=== PATIENT | female | born 1930 | race Caucasian/White ===

== ENCOUNTER → 2017-06-23 | Outpatient (CLI) | payer MEDICARE ==
[2016-10-16 09:28] VITALS: BMI 23.3
[~2017-06-23] MED LIST: APIX5TAB PO; ASP81 PO; ASPI81TA86 PO; CALC-682 PO; CALC500T6 PO; CAR3.125 PO; CAR6.25 PO; CHOL10005 PO; CYAN100015 PO; DIVA250T81 PO; EST625 PO; FISH OIL1 CAP PO; FLU IM; FLU180SY9 IM; FLU45SYR17 IM; FLU45SYR25 IM ONLY; FURO-45 PO; FURO20TA19 PO; HCTZ25 PO; HYDR12.561 PO; HYDR15CR4 TP; IBUP-56 PO; IBUP400T13 PO; IRB150 PO; LEVO50TA80 PO; LEVO50TA86 PO; LIDO10VI16 INTRA-ART; LIDO20SO21 MM; LISI-347 PO; LISI20TA29 PO; LISI5TAB25 PO; Lisinopril PO; MAGN400T36 PO; MVI; OMEG-11 PO; ONDA-2 PO; ONDA4TAB97 PO; OXYC-865 PO; OXYGENHOME INH; PNEU0.5D3 IM; POTA20TA10 PO; POTA25TA6 PO; PSYL660P5 PO; SPIR25TA78 PO; SULF-198 PO; TRI40I IART; VAL250 PO; WARF1TAB15 PO
[2017-06-23 10:31] LABS: PLATELET COUNT, AUTOMATED 111 K/uL (150-450)
[2017-06-23 10:37] LABS: INR 2.28
== END ==
LOC: LAB 08:59
PROVIDERS: ATTEND Family Medicine
DX: I48.2 Chronic atrial fibrillation (principal); E55.9 Vitamin D deficiency, unspecified; I50.22 Chronic systolic (congestive) heart failure; E53.8 Deficiency of other specified B group vitamins; E03.9 Hypothyroidism, unspecified; I10 Essential (primary) hypertension
CPT/HCPCS: 36415; 82040; 82247; 82306; 82310; 82374; 82435; 82565; 82607; 82947; 83880; 84075; 84132; 84155; 84295; 84443; 84450; 84460; 84520; 85025; 85610

== ENCOUNTER 2017-08-02 11:14 | Inpatient (IN) | payer MEDICARE ==
[~2017-08-02] VITALS: Ht 162.6 cm; Wt 85.0 kg
[2017-08-02] VITALS (7 sets, daily range): BP systolic 81–109; BP diastolic 48–83
[~2017-08-02 11:14] MED LIST changes: -WARF1TAB56 PO
--- NOTE | 2017-08-02 11:21 | ER Report ---
History and Physical Time Seen By MD: 11:21 HPI/ROS CHIEF COMPLAINT: Dizziness HISTORY OF PRESENT ILLNESS: 87-year-old female patient presents to emergency room with complaint of dizziness. Patient states that this started last night. She states that she's not had any shortness of breath, nausea, vomiting or diarrhea. Patient states she is not taking any medication for this. Patient states she does stay at home as she is unable to leave the house on her own. Patient does have significant swelling, she states she is no longer taking her Lasix. She states she's been switched to Bumex. Her last BMP was greater than 1000. Patient denies having any fevers, chills. Patient states she got up from her recliner, was going to put some the way. When she did that she became incredibly dizzy. She is sitting down in a folding chair, where she stayed all night until this morning when her son found her. He was contacted and she is brought into the emergency room via EMS. REVIEW OF SYSTEMS: Respiratory: No cough, no dyspnea. Cardiovascular: No chest pain, no palpitations. Gastrointestinal: No vomiting, no abdominal pain. Musculoskeletal: No back pain. Allergies: Coded Allergies: Penicillins (Verified Allergy, Mild, 08/02/17) Tetanus Vaccines and Toxoid (Verified Allergy, Mild, 08/02/17) codeine (Verified Allergy, Mild, 08/02/17) erythromycin base (Verified Allergy, Mild, 08/02/17) minocycline (Verified Allergy, Mild, 08/02/17) oxymorphone (Verified Allergy, Mild, 08/02/17) propoxyphene (Verified Allergy, Mild, 08/02/17) Home Meds Active Scripts Warfarin Sodium (WARFARIN SODIUM) 1 Mg Tablet, 3 TAB PO Garcia, Mo, , We, #270 TAB 0 Refills Take as directed Prov:KIERSTEN THOMAS MD 08/02/17 Torsemide (TORSEMIDE) 20 Mg Tablet, 20 MG PO QAM for 30 Days, #30 TAB 3 Refills Prov:RACHAEL YEE MD 07/28/17 Spironolactone (ALDACTONE) 25 Mg Tablet, 0.5 TAB PO QDAY for 90 Days, #45 TAB Prov:RACHAEL YEE MD 07/07/17 Potassium Chloride (Potassium Chloride) 20 Meq Tablet.er, 1 TAB PO DAILY for 90 Days, #90 TAB Prov:RACHAEL YEE MD 06/15/17 Divalproex Sodium (DEPAKOTE ER) 250 Mg Tab.er.24h, 2 TAB PO HS for 90 Days, # 180 TAB 0 Refills Prov:RACHAEL YEE MD 06/05/17 Carvedilol (CARVEDILOL) 6.25 Mg Tab, 1 TAB PO BID, #180 TAB 4 Refills Prov:RACHAEL YEE MD 04/16/17 Levothyroxine Sodium (LEVOTHYROXINE SODIUM) 50 Mcg Tablet, 1 TAB PO QDAY, #90 TAB 4 Refills Prov:RUSS ESCALERA MD 12/03/16 Reported Medications Warfarin Sodium (COUMADIN) 1 Mg Tablet, 4.5 MG PO Th, Fr, Sa 08/02/17 Psyllium Husk (Metamucil) 3.4 Gram/5.4 Gram Powder, 1 DOSE-PACK PO DAILY Y for CONSTIPATION 06/15/17 Oxygen (OXYGEN) Inha, 2 L INH HS, L 10/16/16 Cholecalciferol (Vitamin D3) (VITAMIN D3) 1,000 Unit Tablet, 2 TAB PO QDAY, TAB 06/25/15 Discontinued Scripts Furosemide (LASIX) 20 Mg Tablet, 2 TAB PO DAILY, #90 TAB Prov:RACHAEL YEE MD 07/21/17 Past Medical/Surgical History Patient has a past medical history of dementia, NE, A. fib, hypertension, arthritis, skin cancer. Patient has surgical history of cardiac surgery, abdominal surgery, appendectomy , hysterectomy, back surgery, tonsillectomy, skin cancer removal. Reviewed Nurses Notes: Yes Hx Smoking: No Smoking Status: Never Smoker Hx Substance Use Disorder: No Hx Alcohol Use: No Constitutional Vital Sign - Last 24 Hours 08/02/17 08/02/17 08/02/17 08/02/17 11:16 11:19 11:20 11:20 Temp 97.5 Pulse 99 Resp 20 B/P (MAP) 90/72 (78) 122/72 (89) 90/72 O2 Delivery Non-Rebreather O2 Flow Rate 10.0 08/02/17 08/02/17 08/02/17 08/02/17 11:30 11:44 11:45 12:00 Pulse 105 Resp 18 B/P (MAP) 111/79 (90) 101/74 (83) 104/62 (76) 08/02/17 08/02/17 08/02/17 08/02/17 12:14 12:15 12:20 12:30 Pulse 57 Resp 15 10 B/P (MAP) 93/55 (68) 95/61 (72) Pulse Ox 94 08/02/17 13:00 B/P (MAP) 109/77 (88) Intake and Output 08/02/17 08/02/17 08/03/17 14:59 22:59 06:59 Output Total 400 ml Balance -400 ml Physical Exam General Appearance: The patient is alert, has no immediate need for airway protection and no current signs of toxicity. Respiratory: Chest is non tender, lungs are clear to auscultation. Cardiac: regular rate and rhythm Gastrointestinal: Abdomen is soft and non tender, no masses, bowel sounds normal. Musculoskeletal: Neck: Neck is supple and non tender. Extremities have full range of motion and are non tender. Skin: No rashes or lesions. DIFFERENTIAL DIAGNOSIS: After history and physical exam differential diagnosis was considered for dizziness including but not limited to peripheral and central causes of vertigo, orthostatic causes including dehydration, and blood loss. Included in the differential is NE, stroke, intracranial hemorrhage. Medical Decision Making Data Points Result Diagram: 08/02/17 1122 08/02/17 1122 Laboratory Hematology Test 08/02/17 11:22 08/02/17 11:38 Red Blood Count 4.30 M/uL (4.17-5.56) Mean Corpuscular Volume 105.3 fL (80.0-96.0) Mean Corpuscular Hemoglobin 37.1 pg (26.0-33.0) Mean Corpuscular Hemoglobin Concent 35.2 g/dL (32.0-36.0) Red Cell Distribution Width 17.1 % (11.5-14.5) Mean Platelet Volume 8.9 fL (7.2-11.1) Neutrophils (%) (Auto) 79.4 % (39.4-72.5) Lymphocytes (%) (Auto) 9.8 % (17.6-49.6) Monocytes (%) (Auto) 9.8 % (4.1-12.4) Eosinophils (%) (Auto) 0.2 % (0.4-6.7) Basophils (%) (Auto) 0.8 % (0.3-1.4) Nucleated RBC Relative Count (auto) 0.0 /100WBC Neutrophils # (Auto) 4.5 K/uL (2.0-7.4) Lymphocytes # (Auto) 0.5 K/uL (1.3-3.6) Monocytes # (Auto) 0.5 K/uL (0.3-1.0) Eosinophils # (Auto) 0.0 K/uL (0.0-0.5) Basophils # (Auto) 0.0 K/uL (0.0-0.1) Nucleated RBC Absolute Count (auto) 0.00 K/uL Prothrombin Time 28.4 seconds (12.0-14.4) Prothromb Time International Ratio 2.56 Sodium Level 132 mmol/L (137-145) Potassium Level 3.3 mmol/L (3.5-5.0) Chloride Level 96 mmol/L (98-107) Carbon Dioxide Level 24 mmol/L (22-31) Blood Urea Nitrogen 22 mg/dl (7-18) Creatinine 0.90 mg/dl (0.52-1.04) Glomerular Filtration Rate Calc 59.0 Random Glucose 103 mg/dl (75-110) Calcium Level 9.1 mg/dl (8.4-10.2) Total Bilirubin 1.6 mg/dl (0.2-1.3) Aspartate Amino Transf (AST/SGOT) 31 U/L (0-35) Alanine Aminotransferase (ALT/SGPT) 14 U/L (0-56) Alkaline Phosphatase 70 U/L (0-126) Troponin I 0.402 ng/ml B-Type Natriuretic Peptide 1730 pg/ml (0-100) Total Protein 6.2 gm/dl (6.3-8.2) Albumin 3.2 g/dl (3.5-5.0) Urine Color Yellow Urine Clarity Clear Urine pH 6.0 pH (4.8-9.5) Urine Specific [place] 1.010 Urine Protein Negative mg/dL (NEGATIVE) Urine Glucose (UA) Negative mg/dL (NEGATIVE) Urine Ketones Trace mg/dL (NEGATIVE) Urine Blood Negative (NEGATIVE) Urine Nitrite Negative (NEGATIVE) Urine Bilirubin Negative (NEGATIVE) Urine Urobilinogen 2.0 mg/dL (0.2-1.9) Urine Leukocyte Esterase Negative (NEGATIVE) Urine RBC 1 /HPF (0-2/HPF) Urine WBC 2 /HPF (0-5/HPF) Urine Squamous Epithelial Cells None /LPF (NONE-FEW) Urine Bacteria Negative /HPF (NONE-FEW) Urine Mucus None /HPF (NONE-FEW) Chemistry Test 08/02/17 11:22 08/02/17 11:38 White Blood Count 5.6 k/uL (4.5-11.0) Red Blood Count 4.30 M/uL (4.17-5.56) Hemoglobin 15.9 g/dL (12.0-16.0) Hematocrit 45.3 % (34.0-47.0) Mean Corpuscular Volume 105.3 fL (80.0-96.0) Mean Corpuscular Hemoglobin 37.1 pg (26.0-33.0) Mean Corpuscular Hemoglobin Concent 35.2 g/dL (32.0-36.0) Red Cell Distribution Width 17.1 % (11.5-14.5) Platelet Count 119 K/uL (150-450) Mean Platelet Volume 8.9 fL (7.2-11.1) Neutrophils (%) (Auto) 79.4 % (39.4-72.5) Lymphocytes (%) (Auto) 9.8 % (17.6-49.6) Monocytes (%) (Auto) 9.8 % (4.1-12.4) Eosinophils (%) (Auto) 0.2 % (0.4-6.7) Basophils (%) (Auto) 0.8 % (0.3-1.4) Nucleated RBC Relative Count (auto) 0.0 /100WBC Neutrophils # (Auto) 4.5 K/uL (2.0-7.4) Lymphocytes # (Auto) 0.5 K/uL (1.3-3.6) Monocytes # (Auto) 0.5 K/uL (0.3-1.0) Eosinophils # (Auto) 0.0 K/uL (0.0-0.5) Basophils # (Auto) 0.0 K/uL (0.0-0.1) Nucleated RBC Absolute Count (auto) 0.00 K/uL Prothrombin Time 28.4 seconds (12.0-14.4) Prothromb Time International Ratio 2.56 Glomerular Filtration Rate Calc 59.0 Calcium Level 9.1 mg/dl (8.4-10.2) Total Bilirubin 1.6 mg/dl (0.2-1.3) Aspartate Amino Transf (AST/SGOT) 31 U/L (0-35) Alanine Aminotransferase (ALT/SGPT) 14 U/L (0-56) Alkaline Phosphatase 70 U/L (0-126) Troponin I 0.402 ng/ml B-Type Natriuretic Peptide 1730 pg/ml (0-100) Total Protein 6.2 gm/dl (6.3-8.2) Albumin 3.2 g/dl (3.5-5.0) Urine Color Yellow Urine Clarity Clear Urine pH 6.0 pH (4.8-9.5) Urine Specific [place] 1.010 Urine Protein Negative mg/dL (NEGATIVE) Urine Glucose (UA) Negative mg/dL (NEGATIVE) Urine Ketones Trace mg/dL (NEGATIVE) Urine Blood Negative (NEGATIVE) Urine Nitrite Negative (NEGATIVE) Urine Bilirubin Negative (NEGATIVE) Urine Urobilinogen 2.0 mg/dL (0.2-1.9) Urine Leukocyte Esterase Negative (NEGATIVE) Urine RBC 1 /HPF (0-2/HPF) Urine WBC 2 /HPF (0-5/HPF) Urine Squamous Epithelial Cells None /LPF (NONE-FEW) Urine Bacteria Negative /HPF (NONE-FEW) Urine Mucus None /HPF (NONE-FEW) Coagulation Test 08/02/17 11:22 Prothrombin Time 28.4 seconds Prothromb Time International Ratio 2.56 Urinalysis Test 08/02/17 11:38 Urine Color Yellow Urine Clarity Clear Urine pH 6.0 pH (4.8-9.5) Urine Specific [place] 1.010 Urine Protein Negative mg/dL (NEGATIVE) Urine Glucose (UA) Negative mg/dL (NEGATIVE) Urine Ketones Trace mg/dL (NEGATIVE) Urine Blood Negative (NEGATIVE) Urine Nitrite Negative (NEGATIVE) Urine Bilirubin Negative (NEGATIVE) Urine Urobilinogen 2.0 mg/dL (0.2-1.9) Urine Leukocyte Esterase Negative (NEGATIVE) Urine RBC 1 /HPF (0-2/HPF) Urine WBC 2 /HPF (0-5/HPF) Urine Squamous Epithelial Cells None /LPF (NONE-FEW) Urine Bacteria Negative /HPF (NONE-FEW) Urine Mucus None /HPF (NONE-FEW) EKG/Imaging EKG Interpretation 12 lead EKG: Rhythm: A. fib with rapid ventricular response, PVCs [place]: normal QRS: normal ST segments: Nonspecific ST abnormality Imaging Examination: CHEST SINGLE AP Comparison: 02/07/2017 and earlier. History: Dizziness. Chest pain. Findings: Moderately enlarged cardiac silhouette as before. Sternotomy wires are midline and intact. Aortic valve replacement. Small bilateral chronic pleural effusions. Chronic interstitial thickening. No pneumothorax or definite evidence of acute pulmonary edema. No consolidation. No acute osseous normality. IMPRESSION: 1. Unchanged moderate cardiac silhouette enlargement. 2. Unchanged small bilateral pleural effusions. 3. Overall, the chest is minimally changed since 02/07/2017. Report Dictated By: Cihvo Weeks MD at 08/02/2017 1:00 PM Report E-Signed By: Chivo Weeks MD at 08/02/2017 1:03 PM EXAMINATION: CT HEAD WITHOUT CONTRAST COMPARISON: 02/07/2017 HISTORY: dizziness PROCEDURE: Noncontrast CT from the vertex through the skull base. One of the following dose optimization techniques was utilized in the performance of this exam: Automated exposure control; adjustment of the mA and/or kV according to the patient's size; or use of an iterative reconstruction technique. Specific details can be referenced in the facility's radiology CT exam operational policy. FINDINGS: Brain volume: Mild global volume loss. Hemorrhage/extra-axial fluid: None. Mass effect/midline shift/edema: None. Ischemia: Moderately advanced chronic white matter disease as before. No acute torres-white differentiation loss. Ventricles and basal cisterns: Within normal limits. Posterior fossa: Negative. Vessels: Carotid atherosclerosis. Calvarium, skull base, and scalp: Negative. Visualized sinuses and orbits: Within normal limits. IMPRESSION: 1. No intracranial hemorrhage or mass effect. 2. Atrophy and chronic white matter disease. No CT findings of acute ischemia. Report Dictated By: Chivo Weeks MD at 08/02/2017 1:03 PM Report E-Signed By: Chivo Weeks MD at 08/02/2017 1:06 PM ED Course/Re-evaluation ED Course Patient was admitted to exam room, history and physical were obtained. Differential diagnoses were considered. On examination patient had lungs are clear, heart was irregular and tachycardic with ventricular rate between 1:15 and 145. A CBC, CMP, EKG, troponin, CT scan of the head, chest x-ray, urinalysis were obtained. The CBC was unremarkable, CMP also unremarkable, EKG showed atrial fibrillation with rapid ventricular response. Patient had a 10 mg dose of diltiazem. That took her heart rate down into the 70s and 80s. Chest x- ray showed no acute findings, troponin was positive at 0.402. I did review previous records, her troponin had never been that high. I discussed the findings with the patient's son as well as the patient. I asked them if they would like to be admitted here for treatment of symptoms and medical management. If they want something more invasive would have to transfer her to [place]. The patient and son both verbalized that they would prefer that she stay here or seek treatment here in [place]. I discussed the case with Dr. Kiersten Thomas, hospitalist who agreed to accept the patient for admission with diagnosis of NSTEMI. Dr. Thomas did request to get an INR done prior to admission. That was done and she had an INR of 2.56. Decision to Disposition Date: August 02, 2017 Decision to Disposition Time: 13:01 Depart Departure Latest Vital Signs Vital Signs Date Time Temp Pulse Resp B/P (MAP) Pulse Ox O2 Delivery O2 Flow Rate FiO2 08/02/17 13:00 109/77 (88) 08/02/17 12:20 10 08/02/17 12:14 57 94 08/02/17 11:20 97.5 Non-Rebreather 08/02/17 11:20 10.0 Impression: Primary Impression: NSTEMI (non-ST elevated myocardial infarction) Condition: Condition Unchanged Disposition: Admitted from ER Referrals: RACHAEL YEE MD (PCP) New Scripts Warfarin Sodium (WARFARIN SODIUM) 1 Mg Tablet 3 TAB PO Garcia, Mo, Tu, We, #270 TAB 0 Refills Take as directed Prov: KIERSTEN THOMAS MD 08/02/17 NAN SUNG August 02, 2017 11:21
[2017-08-02] MEDS ORDERED: ASPIRIN 81 MG CHEW PO ONE (11:35)
[2017-08-02] MEDS ORDERED: DILTIAZEM 5 MG/ML 5ML IVPUSH IVP ONE (11:40)
[2017-08-02 12:06] LABS: PLATELET COUNT, AUTOMATED 119 K/uL (150-450)
--- NOTE | 2017-08-02 13:07 | RADIOLOGY IMAGING REPORT ---
FACILITY: [facility] PATIENT NAME: Haydee Warner : 1930 MR: [id number] V: [id number] EXAM DATE: ORDERING PHYSICIAN: NAN SUNG TECHNOLOGIST: Location: [facility] - [place] Patient: Haydee Warner : 1930 Visit/Account:[id number] Date of Sevice: 08/02/2017 Examination: CHEST SINGLE AP Comparison: 02/07/2017 and earlier. History: Dizziness. Chest pain. Findings: Moderately enlarged cardiac silhouette as before. Sternotomy wires are midline and intact. Aortic valve replacement. Small bilateral chronic pleural effusions. Chronic interstitial thickening. No pneumothorax or defini te evidence of acute pulmonary edema. No consolidation. No acute osseous normality. IMPRESSION: 1. Unchanged moderate cardiac silhouette enlargement. 2. Unchanged small bilateral pleural effusions. 3. Overall, the chest is minimally changed since 02/07/2017. Report Dictated By: Chivo Weeks MD at 08/02/2017 1:00 PM Report E-Signed By: Chivo Weeks MD at 08/02/2017 1:03 PM WSN:[id number]
--- NOTE | 2017-08-02 13:09 | RADIOLOGY IMAGING REPORT ---
FACILITY: [facility] - [place] PATIENT NAME: Haydee Warner : 1930 MR: [id number] V: [id number] EXAM DATE: ORDERING PHYSICIAN: NAN SUNG TECHNOLOGIST: Location: [facility] Patient: Haydee Warner : 1930 Visit/Account:[id number] Date of Sevice: 08/02/2017 EXAMINATION: CT HEAD WITHOUT CONTRAST COMPARISON: 02/07/2017 HISTORY: dizziness PROCEDURE: Noncontrast CT from the vertex through the skull base. One of the following dose optimizat ion techniques was utilized in the performance of this exam: Automated exposure control; adjustment o f the mA and/or kV according to the patient's size; or use of an iterative reconstruction technique. Specific details can be referenced in the facility's radiology CT exam operational policy. FINDINGS: Brain volume: Mild global volume loss. Hemorrhage/extra-axial fluid: None. Mass effect/midline shift/edema: None. Ischemia: Moderately advanced chronic white matter disease as before. No acute torres-white differentia tion loss. Ventricles and basal cisterns: Within normal limits. Posterior fossa: Negative. Vessels: Carotid atherosclerosis. Calvarium, skull base, and scalp: Negative. Visualized sinuses and orbits: Within normal limits. IMPRESSION: 1. No intracranial hemorrhage or mass effect. 2. Atrophy and chronic white matter disease. No CT findings of acute ischemia. Report Dictated By: Chivo Weeks MD at 08/02/2017 1:03 PM Report E-Signed By: Chivo Weeks MD at 08/02/2017 1:06 PM WSN:[id number]
[2017-08-02 13:26] LABS: INR 2.56
--- NOTE | 2017-08-02 13:36 | EKG ---
[place] [facility] [place] NAME: LEX KWAN : [id number] MR: [id number] V: [id number] EXAM DATE: ORDERING PHYSICIAN: NAN SUNG TECHNOLOGIST: SHANEL Test Reason : SYNCOPE Blood Pressure : / mmHG Vent. Rate : 116 BPM Atrial Rate : 150 BPM P-R Int : 000 ms QRS Dur : 094 ms QT Int : 340 ms P-R-T Axes : 000 008 170 degrees QTc Int : 472 ms Atrial fibrillation with rapid ventricular response with premature ventricular or aberrantly conducte d complexes ST and T wave abnormality, consider lateral ischemia Abnormal ECG No previous ECGs available Confirmed by KIERSTEN EDWARDS ([id number]) on 08/02/2017 4:15:31 PM Referred By: MESFIN Confirmed By:KIERSTEN EDWARDS
[2017-08-02] MEDS ORDERED: FLUSH 10 ML SYR IVP PRN (14:15)
[2017-08-02] MEDS ORDERED: ACETAMINOPHEN 325 MG TAB PO PRN (14:15)
[2017-08-02] MEDS ORDERED: WARF1TAB56 PO (14:53)
[2017-08-02] MEDS ORDERED: WARF1TAB15 PO (14:53)
--- NOTE | 2017-08-02 15:49 | History & Physical ---
History of Present Illness Chief Complaint Generalized weakness History of Present Illness The patient is an 87 year old female who lives alone with PMH significant for CAD, chronic atrial fibrillation, CHF, AVR with porcine valve and mitral regurgitation who presents with generalized weakness. History is obtained from the patient and her son. The patient apparently walked to a room in the back of her home to get new magazines for her coffee table. When she got to the back of her house, she was weak and sat down in a folding chair. Per her son, the patient has become progressively weaker every day over the past month. She often has to sit down to rest. However, the patient could not get up from the chair. She says her legs were weaker than usual. This occurred at about 3pm. She could not get up and sat in the chair overnight until her son found her this morning. He tried to get her up with her walker to help her to the restroom , but her legs gave out. He helped her to the floor and called EMS. She wears a Lifeline device but forgot that she had it so did not call for help. The patient denies chest pain, shortness of breath, palpitations, racing heart, nausea, vomiting or abdominal discomfort. She has not had fever or chills. She has not had dysuria. Per her son, she has a lift chair and sits in it 90% of the time. She sleeps most of this time. The patient has had significant edema and has been working with Dr. Yee who does home visits. On her last visit to Dr. Yee's office, the patient's weight had increased 10-15 pounds and she weighed 173. Apparently she does best at a weight of approximately 145 pounds. She was recently switched from Lasix to torsemide. She had been on a low sodium diet, but her sodium level became too low so she is now on diet as tolerated. She states she likes to eat [employer] biscuits for her meals because they are easy to prepare. Per the patient's son, the patient had a 3 vessel CABG and aortic bovine valve placed in 2000 in [place]. She has significant mitral regurgitation (moderate to severe) per Dr. Yee's notes. The last echo performed at [facility] was done in May 2015. At that time EF was under 50% with no wall motion abnormalities. There was generalized hypokinesis. She had LAE, LVH, moderate and AI, moderate TI, mild pulmonary HTN and grade 3/4 diastolic dysfunction. The patient has a biologist in [place] that she has seen in the past. She has also seen the [employer] [facility] but her son states "they didn't do much for her ", so she stopped seeing them. The patient currently has a private BOOKING SUPERVISOR once weekly to help with bathing. 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 Status: Chronic (3) Nocturnal hypoxia Status: Chronic (4) Vitamin D deficiency Status: Chronic (5) Diastolic dysfunction Status: Chronic (6) Osteopenia Status: Chronic (7) Vitamin B12 deficiency (non anemic) Status: Chronic (8) Chronic systolic CHF (congestive heart failure) Status: Chronic (9) Thrombocytopenia Status: Chronic (10) Macrocytosis without anemia Status: Chronic (11) Hypothyroidism Onset Date: 12/21/2013 Status: Chronic (12) Hypertension, benign Onset Date: 12/21/2013 Status: Chronic (13) CAD (coronary artery disease) Status: Chronic (14) Hyperlipidemia Status: Chronic (15) Sensorineural hearing loss Status: Chronic (16) History of coronary artery bypass graft Status: Resolved (17) History of aortic valve replacement with bioprosthetic valve Status: Resolved (18) History of cholecystectomy Status: Resolved (19) History of appendectomy Status: Resolved (20) History of hysterectomy Status: Resolved (21) S/P knee replacement Status: Resolved (22) History of back surgery Status: Resolved Home Meds Active Scripts Warfarin Sodium (WARFARIN SODIUM) 1 Mg Tablet, 3 TAB PO Garcia, Mo, Tu, We, #270 TAB 0 Refills Take as directed Prov:KIERSTEN BLUE MD 08/02/17 Torsemide (TORSEMIDE) 20 Mg Tablet, 20 MG PO QAM for 30 Days, #30 TAB 3 Refills Prov:RACHAEL YEE MD 07/28/17 Spironolactone (ALDACTONE) 25 Mg Tablet, 0.5 TAB PO QDAY for 90 Days, #45 TAB Prov:RACHAEL YEE MD 07/07/17 Potassium Chloride (Potassium Chloride) 20 Meq Tablet.er, 1 TAB PO DAILY for 90 Days, #90 TAB Prov:RACHAEL YEE MD 06/15/17 Divalproex Sodium (DEPAKOTE ER) 250 Mg Tab.er.24h, 2 TAB PO HS for 90 Days, # 180 TAB 0 Refills Prov:RACHAEL YEE MD 06/05/17 Carvedilol (CARVEDILOL) 6.25 Mg Tab, 1 TAB PO BID, #180 TAB 4 Refills Prov:RACHAEL YEE MD 04/16/17 Levothyroxine Sodium (LEVOTHYROXINE SODIUM) 50 Mcg Tablet, 1 TAB PO QDAY, #90 TAB 4 Refills Prov:ELENITA FERRO MD 12/03/16 Reported Medications Warfarin Sodium (COUMADIN) 1 Mg Tablet, 4.5 MG PO Th, Fr, Sa 08/02/17 Psyllium Husk (Metamucil) 3.4 Gram/5.4 Gram Powder, 1 DOSE-PACK PO DAILY Y for CONSTIPATION 06/15/17 Oxygen (OXYGEN) Inha, 2 L INH HS, L 10/16/16 Cholecalciferol (Vitamin D3) (VITAMIN D3) 1,000 Unit Tablet, 2 TAB PO QDAY, TAB 06/25/15 Discontinued Scripts Furosemide (LASIX) 20 Mg Tablet, 2 TAB PO DAILY, #90 TAB Prov:RACHAEL YEE MD 07/21/17 Allergies: Coded Allergies: Penicillins (Verified Allergy, Mild, 08/02/17) Tetanus Vaccines and Toxoid (Verified Allergy, Mild, 08/02/17) codeine (Verified Allergy, Mild, 08/02/17) erythromycin base (Verified Allergy, Mild, 08/02/17) minocycline (Verified Allergy, Mild, 08/02/17) oxymorphone (Verified Allergy, Mild, 08/02/17) propoxyphene (Verified Allergy, Mild, 08/02/17) Patient History: FH: CHF (congestive heart failure) FATHER (chf), , Age:58 MOTHER (chf), , Age:41 Other Social/Family Hx The patient lives alone in [place]. She has a BOOKING SUPERVISOR who helps with bathing once per week. Her son watches after her closely. Hx Smoking: No Smoking Status: Never Smoker Caffeine Intake: Coffee Caffeine/Cups Per Day: 2cpd Hx Alcohol Use: No Hx Substance Use Disorder: No History of IV Drug Use: No Review of Systems Constitutional: Weight Gain, No Chills Neurological: Weakness, Dizziness, No Syncope Eyes: No Vision Change ENT: Hearing Loss Cardiovascular: No Chest Pain, No Palpitations Respiratory: Shortness of Breath (Chronic. No worse than usual.), No Cough Gastrointestinal: No Nausea, No Vomiting Genitourinary: No Dysuria Musculoskeletal: No Pain Psychiatric: No Depression Exam Vital Signs Vital Signs Date Time Temp Pulse Resp B/P (MAP) Pulse Ox O2 Delivery O2 Flow Rate FiO2 08/02/17 15:12 88 08/02/17 14:16 Nasal Cannula 3.0 08/02/17 13:30 107/76 (86) 08/02/17 13:20 71 12 08/02/17 11:20 97.5 General Appearance: Alert, Awake, No Acute Distress, Afebrile Eyes: PERRLA Neck: Other (No JVD.) Cardiovascular: Other (Irregularly irregular with soft SVETLANA.) Respiratory: No Respiratory Distress, Clear to Auscultation GI: Abd Soft and Non-Tender Lymph: Cervical Nodes Benign Extremities: Warm, Perfused, Edema (1-2+ pitting edema to the tops of her thighs bilaterally. Both arms with pitting edema L>R.) Integumentary: Generalized Fragile Skin, Other (L buttock with pressure ulcers X 2. Perineum with redness/skin irritation/bleeding of labia posteriorly.) Psych: Appropriate Mood & Affect Medical Decision Making Data Points Result Diagram: 08/02/17 1122 08/02/17 1122 Item Value Date Time Troponin I 0.014 ng/ml 10/16/16 1115 Thyroid Stimulating Hormone (TSH) 2.30 uIU/ml 10/16/16 0540 Valproic Acid (Depakene) Level 58.3 ug/ml 10/16/16 0540 Prothrombin Time 27.6 seconds H 10/16/16 0540 Prothromb Time International Ratio 2.48 10/16/16 0540 Random Glucose 103 mg/dl 08/02/17 1122 Calcium Level 9.1 mg/dl 08/02/17 1122 Total Bilirubin 1.6 mg/dl H 08/02/17 1122 Aspartate Amino Transf (AST/SGOT) 31 U/L 08/02/17 1122 Alanine Aminotransferase (ALT/SGPT) 14 U/L 08/02/17 1122 Alkaline Phosphatase 70 U/L 08/02/17 1122 Total Protein 6.2 gm/dl L 08/02/17 1122 Albumin 3.2 g/dl L 08/02/17 1122 Troponin I 0.402 ng/ml *H 08/02/17 1122 B-Type Natriuretic Peptide 1730 pg/ml H 08/02/17 1122 Prothromb Time International Ratio 2.56 08/02/17 1122 Urine Color Yellow 08/02/17 1138 Urine Clarity Clear 08/02/17 1138 Urine pH 6.0 pH 08/02/17 1138 Urine Specific [place] 1.010 08/02/17 1138 Urine Protein Negative mg/dL 08/02/17 1138 Urine Glucose (UA) Negative mg/dL 08/02/17 1138 Urine Ketones Trace mg/dL 08/02/17 1138 Urine Blood Negative 08/02/17 1138 Urine Nitrite Negative 08/02/17 1138 Urine Bilirubin Negative 08/02/17 1138 Urine Urobilinogen 2.0 mg/dL 08/02/17 1138 Urine Leukocyte Esterase Negative 08/02/17 1138 Urine RBC 1 /HPF 08/02/17 1138 Urine WBC 2 /HPF 08/02/17 1138 Urine Squamous Epithelial Cells None /LPF 08/02/17 1138 Urine Bacteria Negative /HPF 08/02/17 1138 Urine Mucus None /HPF 08/02/17 1138 EKG / Imaging EKG Interpretation FACILITY: [facility] PATIENT NAME: LEX WARNER : [id number] MR: [id number] V: [id number] EXAM DATE: ORDERING PHYSICIAN: NAN SUNG TECHNOLOGIST: Test Reason : SYNCOPE Blood Pressure : / mmHG Vent. Rate : 116 BPM Atrial Rate : 150 BPM P-R Int : 000 ms QRS Dur : 094 ms QT Int : 340 ms P-R-T Axes : 000 008 170 degrees QTc Int : 472 ms Atrial fibrillation with rapid ventricular response with premature ventricular or aberrantly conducted complexes ST and T wave abnormality, consider lateral ischemia or digitalis effect Abnormal ECG No previous ECGs available Referred By: MESFIN Confirmed By: 1121 T: / Imaging FACILITY: [facility] PATIENT NAME: Lex Warner : 1930 MR: [id number] V: [id number] EXAM DATE: ORDERING PHYSICIAN: NAN SUNG TECHNOLOGIST: Location: [facility] Patient: Lex Warner : 1930 Visit/Account:[id number] Date of Sevice: 08/02/2017 EXAMINATION: CT HEAD WITHOUT CONTRAST COMPARISON: 02/07/2017 HISTORY: dizziness PROCEDURE: Noncontrast CT from the vertex through the skull base. One of the following dose optimization techniques was utilized in the performance of this exam: Automated exposure control; adjustment of the mA and/or kV according to the patient's size; or use of an iterative reconstruction technique. Specific details can be referenced in the facility's radiology CT exam operational policy. FINDINGS: Brain volume: Mild global volume loss. Hemorrhage/extra-axial fluid: None. Mass effect/midline shift/edema: None. Ischemia: Moderately advanced chronic white matter disease as before. No acute torres-white differentiation loss. Ventricles and basal cisterns: Within normal limits. Posterior fossa: Negative. Vessels: Carotid atherosclerosis. Calvarium, skull base, and scalp: Negative. Visualized sinuses and orbits: Within normal limits. IMPRESSION: 1. No intracranial hemorrhage or mass effect. 2. Atrophy and chronic white matter disease. No CT findings of acute ischemia. Report Dictated By: Chivo Weeks MD at 08/02/2017 1:03 PM Report E-Signed By: Chivo Weeks MD at 08/02/2017 1:06 PM [id number] FACILITY: [facility] PATIENT NAME: Lex Warner : 1930 MR: [id number] V: [id number] EXAM DATE: [id number] ORDERING PHYSICIAN: NAN SUNG TECHNOLOGIST: Location: [facility] Patient: Lex Warner : 1930 Visit/Account:[id number] Date of Sevice: 08/02/2017 Examination: CHEST SINGLE AP Comparison: 02/07/2017 and earlier. History: Dizziness. Chest pain. Findings: Moderately enlarged cardiac silhouette as before. Sternotomy wires are midline and intact. Aortic valve replacement. Small bilateral chronic pleural effusions. Chronic interstitial thickening. No pneumothorax or definite evidence of acute pulmonary edema. No consolidation. No acute osseous normality. IMPRESSION: 1. Unchanged moderate cardiac silhouette enlargement. 2. Unchanged small bilateral pleural effusions. 3. Overall, the chest is minimally changed since 02/07/2017. Report Dictated By: Chivo Weeks MD at 08/02/2017 1:00 PM Report E-Signed By: Chivo Weeks MD at 08/02/2017 1:03 PM [id number] Pre-Admit Course Medical Record Review: Yes (Outpatient clinic notes, previous echocardiogram report.) Assessment and Plan Problems: (1) NSTEMI (non-ST elevated myocardial infarction) Status: Acute Assessment & Plan: The patient has known CAD. She has chronic atrial fibrillation and rapid ventricular response on arrival to the ER. She had not had anything to drink since 3pm yesterday so it is unclear if the incident started with a fib with RVR which caused increased weakness or if her chronic illnesses caused the weakness and her rapid heart rate is from dehydration. Her troponin elevation could be due to the rapid ventricular response. Will repeat a troponin at 1730. As her troponin is elevated, will avoid further diltiazem and treat her heart rate with small doses of IV metoprolol if needed. She is currently hemodynamically stable. Will order an echo for am. She will be monitored on telemetry. She is currently adequately anticoagulated with an INR of 2.5 (2) Atrial fibrillation with rapid ventricular response Status: Acute Assessment & Plan: See above. Her heart rate improved after a bolus with diltiazem 10mg. (3) Generalized weakness Status: Acute Assessment & Plan: The patient has had increasing weakness over the past month or so. The patient likely has developed biventricular failure. Her bovine valve is aged and she has aortic stenosis, mitral regurgitation and also systolic and diastolic failure. Suspect significant pulmonary hypertension as well. Echo ordered for am. (4) Pressure ulcer Status: Acute Assessment & Plan: L buttock with 2 pressure ulcers. She also has irritation of the labia which may be a chemical irritation due to sitting for prolonged periods of time in a wet depends. Will have PT wound care assess in am. (5) Hypokalemia Status: Acute Assessment & Plan: Mild. Will increase oral potassium. (6) Anasarca Status: Chronic Assessment & Plan: Her edema has gradually worsened despite adjustments in her diuretics. Her albumin is not terribly low but she is likely currently hemoconcentrated. She likely has worsening heart failure. See discussion above. Will also check a spot urine protein. (7) CHRONIC ATRIAL FIBRILLATION Status: Chronic Assessment & Plan: The patient has been chronically managed with carvedilol and warfarin. Her INR is currently therapeutic at 2.5 on warfarin 3mg Sun, Mon, Tues and Wed and 4.5mg the rest of the week. Her medication doses were verified with her son. 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 Will check a depakote level. (9) Diastolic dysfunction Status: Chronic Assessment & Plan: Per echo in 2016 she has grade 3/4 diastolic dysfunction. BNP is elevated as above. Echo ordered. (10) Chronic systolic CHF (congestive heart failure) *Optional Permanent Comment*: NYHA Class III Last Edited By: Elenita Ferro MD on Jan 28, 2016 10:02 Status: Chronic Assessment & Plan: Echo from 2016 shows EF of <50% with no wall motion abnormalities but generalized hypokinesis. CXR show no evidence of pulmonary edema. She did not have JVD on exam. Her LE edema has worsened. BNP is elevated at 1700. Will repeat echo. (11) Thrombocytopenia Status: Chronic Assessment & Plan: Platelet count was slightly low at 119K. (12) Hypothyroidism Onset Date: 12/21/2013 Status: Chronic Assessment & Plan: Will check a TSH. Continue levothyroxine at 50mcg daily. (13) Hypertension, benign Onset Date: 12/21/2013 Status: Chronic Assessment & Plan: She is currently low normal BP. Will monitor. Continue carvedilol. (14) CAD (coronary artery disease) Status: Chronic Assessment & Plan: She has been on carvedilol and warfarin. She is s/p 3- vessel bypass in 2000. Time Spent on Plan of Care: < 30 min Copies to: RACHAEL YEE MD Venous Thromboembolism Antithrombotics Is Pt On Any Antithrombotics?: Yes Heart Failure Ejection Fraction %: 50 RVSP (mmHg): 44 NYHA Class: IV Is Patient on ÓSCAR Inhibitor?: Yes Is Patient on Beta Urbano?: Yes Admission Weight: 216 Exam Sepsis Risk: No Definite Risk KIERSTEN BLUE MD August 02, 2017 15:48
[2017-08-02] MEDS ORDERED: POTASSIUM CHL 20 MEQ TABCR PO SCH (17:00)
[2017-08-02] MEDS ORDERED: CARVEDILOL 6.25 MG TAB PO SCH (21:00)
[2017-08-02] MEDS ORDERED: DIVALPROEX SOD ER 250 MG TABSR PO SCH (21:00)
[2017-08-02] MEDS ORDERED: NS(*) 0.9% 1000 ML BAG 1,000 ML IV PRN (21:30)
[2017-08-03] MEDS ORDERED: DIGOXIN 0.5 MG/2 ML AMP IVP ONE (01:25)
[2017-08-03 02:54] VITALS: BP 92/66
[2017-08-03] MEDS ORDERED: LEVOTHYROXINE SOD 0.05 MG TAB PO SCH (06:00)
[2017-08-03 06:13] LABS: INR 2.09
[2017-08-03] MEDS ORDERED: KCL/NS* 20 MEQ/1000 ML PREMIX 1,000 ML IV PRN ×3 (06:20→08:56)
[2017-08-03 06:59] LABS: PLATELET COUNT, AUTOMATED 90 K/uL (150-450)
[2017-08-03 07:30] VITALS: BP 84/53
[2017-08-03] MEDS ORDERED: CHOLECALCIFEROL 1000 UNIT TAB PO SCH (09:00)
[2017-08-03 09:31] VITALS: Ht 162.6 cm; Wt 85.0 kg
--- NOTE | 2017-08-03 10:36 | Hospitalist Progress Note ---
Subjective Progress Notes Subjective She reports feeling "OK" while at rest. She has had some difficulty clearing secretions at times/ Physical Exam Vital Signs Date Time Temp Pulse Resp B/P (MAP) Pulse Ox O2 Delivery O2 Flow Rate FiO2 08/03/17 03:56 107 08/03/17 02:54 98.3 18 92/66 (75) 98 Nasal Cannula 3.0 Intake and Output 08/04/17 06:59 Intake Total 240 ml Balance 240 ml Intake Oral 240 ml General Appearance: Alert, Awake Neuro: Other (diffuse generalized weakness) Cardiovascular: Other (Irregular with distant tones/soft systolic murmur) Respiratory: Other (diminished at bases/few rales bilaterally) Chest: No Tenderness GI: Other (soft/BS persent) Extremities: Warm, Perfused, Edema Result Diagram: 08/03/17 0653 08/03/17 0531 Assessment and Plan Problems: (1) NSTEMI (non-ST elevated myocardial infarction) Status: Acute Assessment & Plan: The patient has known CAD. She has chronic atrial fibrillation and had rapid ventricular response. Her troponin elevation could be due to the rapid ventricular response or a primary ischemic event. Her echocardiogram (prelim report) shows greatly diminished EF at ~20% with severe pulmonary HTN and probably severe aortic stenosis and severe MR. I discussed this with the patient and her son. They have been discussing her wishes "all along" and now would like to transition into comfort care/end-of-life care. We will have SW meet with family to discuss options for this. (2) Atrial fibrillation with rapid ventricular response Status: Acute Assessment & Plan: Hear rate slightly improved. Will be transitioning into comfort care. Will treat any noxious symptoms as needed. (3) Generalized weakness Status: Acute Assessment & Plan: The patient has had increasing weakness over the past month or so. The patient likely has developed due to her biventricular failure. Her bovine valve is aged and she has severe aortic stenosis, severe mitral regurgitation, severe pulmonary HTN and systolic and diastolic failure as well. (4) Chronic systolic CHF (congestive heart failure) Status: Chronic Assessment & Plan: Significant decline in function as noted above. She will be transitioning to comfort care/end-of-life care. (5) Pressure ulcer Status: Acute Assessment & Plan: L buttock with 2 pressure ulcers. She also has irritation of the labia which may be a chemical irritation due to sitting for prolonged periods of time in a wet Depends. Neil cath in place. Will have wound care as needed for comfort. (6) Hypokalemia Status: Acute Assessment & Plan: Mild. (7) Anasarca Status: Chronic Assessment & Plan: Her edema has gradually worsened despite adjustments in her diuretics. Most likely due to her worsening heart failure. See discussion above. (8) CHRONIC ATRIAL FIBRILLATION Status: Chronic Assessment & Plan: The patient has been chronically managed with carvedilol and warfarin. Her INR is currently therapeutic at 2.5 on warfarin 3mg Sun, Mon, Tues and Wed and 4.5mg the rest of the week. Her medication doses were verified with her son. 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 (10) Thrombocytopenia Status: Chronic Assessment & Plan: Platelet count was slightly low at 119K. (11) Hypothyroidism Onset Date: 12/21/2013 Status: Chronic Assessment & Plan: Continue levothyroxine. (12) CAD (coronary artery disease) Status: Chronic Assessment & Plan: She has been on carvedilol and warfarin. She is s/p 3- vessel bypass and aortic valve replacement with bovine valve in 2000. Heart Failure Ejection Fraction %: 50 RVSP (mmHg): 44 NYHA Class: IV Is Patient on ÓSCAR Inhibitor?: Yes Is Patient on Beta Urbano?: Yes Admission Weight: 216 Exam Sepsis Risk: No Definite Risk DANNA BLUE MD August 03, 2017 10:36
[2017-08-03] MEDS ORDERED: MORPHINE 2 MG/ML SYR IVP PRN (10:45)
[2017-08-03] MEDS ORDERED: LORazepam 2 MG/ML VIAL IVP PRN (10:45)
[2017-08-03] MEDS ORDERED: PROMETHAZINE 25 MG/ML 1 ML AMP IVP PRN (10:45)
--- NOTE | 2017-08-03 12:42 | Death Summary ---
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 Hospital Course The patient has known CAD, chronic atrial fibrillation, systolic heart failure. She presented with a-fib with rapid ventricular response and troponin elevation. She most likely had a primary ischemic event. Her echocardiogram ( prelim report) showed greatly diminished EF at ~20% with severe pulmonary HTN and probably severe aortic stenosis and severe MR. I discussed this with the patient and her son. They had been discussing her wishes "all along" and now wanted to transition into comfort care/end-of-life care. She was DNR/DNI status. We were in the midst of making plans when she probably had an acute malignant dysrhythmia and (she had been taken off telemetry as she was transitioned to comfort care). She was found without spontaneous respirations or heart tones and pronounced at 1227hrs on 08/03/17. Copies to: RACHAEL YEE MD Medical Records to be sent: Summary DANNA BLUE MD August 03, 2017 12:41
[2017-08-03] MEDS ORDERED: WARFARIN SOD 1 MG TAB PO SCH (13:00)
[2017-08-04] MEDS ORDERED: INFLUENZA VIRUS VAC 0.5 ML SYR IM ONLY ONE (09:00)
--- NOTE | 2017-08-04 17:50 | RADIOLOGY IMAGING REPORT ---
FACILITY: [facility] PATIENT NAME: LEX KWAN : [id number] MR: [id number] V: [id number] EXAM DATE: ORDERING PHYSICIAN: KIERSTEN BLUE TECHNOLOGIST: Haydee Keane EXAMINATION:TWO-DIMENSIONAL ECHOCARDIOGRAPH REASON:AORTIC VALVULAR DISEASE 2D Measurements (normal values in centimeters) LV endLV endRV endVent.LV PostAorticLeftPercent DiastolicSystolicDiastolicSeptumWallRootAtriumShortening (3.5-5.7)(0.9-2.6)(0.6-1.1)(0.6-1.1)(2.0-3.7)(1.9-4.0)(25-35%) [id number]% STROKE VOLUME: 31ml ESTIMATED EJECTION FRACTION:20% PARASTERNAL LONG AXIS: Left atrium appears to be severely enlarged. Patient is in atrial fibrillation. There appears to be significant decrease in diastolic function. Right ventricle appears to be upper range of normal in size. Aortic valve appears to be stenotic. There is mitral annular calcification as well as mitral valve thickening. No thrombi are noted in any of the chambers but the left atrial appendage is not seen. Mitral insufficiency is noted. Aortic insufficiency is also noted. Significant mitral insufficiency is noted. PARASTERNAL SHORT AXIS: Significantly decreased left ventricular systolic function. Generalized hypokinesis possibly some akinesis along the basal septal wall. Mitral valve may have been repaired. APICAL FOUR AND TWO CHAMBER: The aortic valve area was measured at .5cm2 with a mean pressure gradient across the valve of 24mm Hg & a dimensionless index of .2 indicating moderate aortic stenosis. The tricuspid regurgitation Vmax measured 3.5m/sec with an estimated right atrial pressure of 15mm Hg giving a total right ventricular systolic pressure of 64mm Hg indicating severe pulmonary hypertension & increased right ventricular systolic pressures. Severe left atrial & right atrial enlargement at 43 & 45ml/m2. Right ventricle also appears to be decreased. The TAPSE measurement is .97. Aortic insufficiency is noted. Severe mitral insufficiency is noted. Moderate tricuspid insufficiency is noted. Significantly decreased left ventricular function is noted. SUBCOSTAL VIEW: No pericardial effusion was noted. No atrioseptal or ventriculoseptal defects were appreciated. Definity contrast was used. Hypokinesis possibly an area of akinesis along the interventricular septum, especially the basilar portion of the interventricular septum. Hypokinesis along the inferior wall as well. The aortic pressure half time was measured at 252msec. IVC is enlarged. OVERALL IMPRESSION: 1. Significantly decreased left ventricular ejection fraction measured at 20%, it may be slightly more than that. Patient is in atrial fibrillation with a slightly increased rate at 106 bpm. No thrombi were noted in any of the chambers but the left atrial appendage is not seen. 2. There is generalized hypokinesis but also probably an area of akinesis along the basilar portion of the interventricular septum & also the posterior wall. 3. Severe enlargement of the left atrium & right atrium. 4. Aortic valve was not well seen. I could not really tell its configuration. It is moderately stenotic with a valve area of .5cm2 with a mean pressure gradient across the valve of 24mm Hg & a dimensionless index of .2. Some of this could be due to the decrease in left ventricular systolic function. If further evaluation of the aortic valve is needed would recommend a Dobutamine test to further measure the aortic valve area & see if the decrease in area is due to the decrease in left ventricular function. 5. Mitral valve may have been repaired at some time, difficult to tell. There certainly is mitral annular calcification & thickening of the annulus. There is a borderline severe amount of mitral insufficiency noted. 6. A moderate amount of tricuspid insufficiency with estimated right ventricular pressures of 15mm Hg giving a total right ventricular pressure of 64mm Hg. This indicates severe pulmonary hypertension & increased right ventricular systolic pressures. 7. A mild amount of pulmonic insufficiency present. 8. Decrease in right ventricular function with the right ventricular septal wall appearing hypokinetic if not somewhat akinetic. Definity contrast was used. Dictated by: Jovi Corral M.D. on 08/03/2017 at 19:44 Transcribed by: [email or web address] on 08/04/2017 at 10:44 Approved by: Jovi Corral M.D. on 08/04/2017 at 17:48 [facility]
[2017-08-06] MEDS ORDERED: WARFARIN SOD 2.5 MG TAB 2.5 MG, WARFARIN SOD 2 MG TAB 2 MG PO SCH (13:00)
[2017-08-06] MEDS ORDERED: WARFARIN SOD 1 MG TAB PO SCH (15:05)
== END 2017-08-03 12:27 | disposition expired ==
LOC: ER 11:24 → MED 13:12
PROVIDERS: ADMIT Internal Medicine; ATTEND Internal Medicine
DX: I21.4 Non-ST elevation (NSTEMI) myocardial infarction (principal); I50.42 Chronic combined systolic (congestive) and diastolic (congestive) heart failure; G40.209 Localization-related (focal) (partial) symptomatic epilepsy and epileptic syndromes with complex partial seizures, not intractable, without status epilepticus; I50.82 Biventricular heart failure; I25.10 Atherosclerotic heart disease of native coronary artery without angina pectoris; I48.0 Paroxysmal atrial fibrillation; I49.9 Cardiac arrhythmia, unspecified; Z66 Do not resuscitate; E86.0 Dehydration; L89.322 Pressure ulcer of left buttock, stage 2; I11.0 Hypertensive heart disease with heart failure; D69.6 Thrombocytopenia, unspecified; E78.5 Hyperlipidemia, unspecified; I27.20 Pulmonary hypertension, unspecified; I35.0 Nonrheumatic aortic (valve) stenosis; I34.0 Nonrheumatic mitral (valve) insufficiency; Z51.5 Encounter for palliative care; F03.90 Unspecified dementia, unspecified severity, without behavioral disturbance, psychotic disturbance, mood disturbance, and anxiety; M85.80 Other specified disorders of bone density and structure, unspecified site; G47.34 Idiopathic sleep related nonobstructive alveolar hypoventilation; E55.9 Vitamin D deficiency, unspecified; D75.89 Other specified diseases of blood and blood-forming organs; E03.9 Hypothyroidism, unspecified; E87.6 Hypokalemia; Z79.01 Long term (current) use of anticoagulants; Z95.1 Presence of aortocoronary bypass graft; Z88.0 Allergy status to penicillin; Z88.5 Allergy status to narcotic agent; Z88.8 Allergy status to other drugs, medicaments and biological substances; Z85.828 Personal history of other malignant neoplasm of skin; Z90.710 Acquired absence of both cervix and uterus; Z95.3 Presence of xenogenic heart valve; Z96.651 Presence of right artificial knee joint
CPT/HCPCS: 36415; 70450; 71045; 80164; 81001; 82040; 82247; 82310; 82374; 82435; 82565; 82947; 83735; 83880; 84075; 84132; 84134; 84155; 84156; 84295; 84443; 84450; 84460; 84484; 84520; 85025; 85610; 93005; 99285; C8929; J1160; J3490; J7030; Q9957

== ENCOUNTER → 2017-08-02 | Outpatient (CLI) | payer MEDICARE ==
[~2017-08-02] MED LIST changes: +BUME0.5T10 PO; +SPIR25TA76 PO; +TORS20TA30 PO; +WARF1TAB56 PO
[2017-08-03 09:31] VITALS: BMI 32.1
== END ==
LOC: AMB 10:43
PROVIDERS: ATTEND Nurse Practitioner
DX: R55 Syncope and collapse (principal); R60.0 Localized edema; R09.02 Hypoxemia
CPT/HCPCS: A0425; A0427